=== PATIENT | male | born 1990 | race Caucasian/White ===

== ENCOUNTER 2020-05-29 14:57 | Emergency (ER) | payer SELFPAY ==
[~2020-05-29] VITALS: Ht 162.6 cm; Wt 61.5 kg
[2020-05-29 15:00] VITALS: BP 132/87
[2020-05-29 16:33] LABS: CHLORIDE 100 mEq/L (98-107)
[2020-05-29 16:37] LABS: ETHANOL BLOOD < 10 mg/dL
[2020-05-29 16:53] LABS: HEMATOCRIT. 37.9 % (42.0-52.0); HEMOGLOBIN. 13.4 g/dL (14.0-18.0); MEAN CORPUSCULAR HEMOGLOBIN 32.1 pg (28.0-32.0); MEAN CORPUSCULAR VOLUME 90.6 fL (80.0-94.0); MEAN PLATELET VOLUME 8.1 fl (7.4-10.4); PLATELET 311 x1000/uL (130-400); RED BLOOD CELL COUNT 4.19 mill/uL (4.7-6.1)
[2020-05-29 19:00] LABS: PLATELET ESTIMATE NORMAL
== END 2020-05-29 16:35 | disposition home or self-care (01) ==
LOC: ER 15:04
DX: T43.621A Poisoning by amphetamines, accidental (unintentional), initial encounter (principal); R20.2 Paresthesia of skin; Y92.89 Other specified places as the place of occurrence of the external cause
CPT/HCPCS: 36415; 80053; 80307; 80320; 80329; 85025; 99283; G0480